=== PATIENT | male | born 1950 | race Caucasian/White ===

== ENCOUNTER → 2020-05-26 09:20 | Outpatient (CLI) | payer MEDICARE, OTHER, SELFPAY ==
--- NOTE | 2020-05-26 09:57 | XR_ITS ---
PROCEDURE: XR CHEST PORTABLE CLINICAL HISTORY: COVID OUTPATIENT Shortness of air COMPARISON: No exams were available for comparison FINDINGS: The cardiomediastinal silhouette and pulmonary vascularity are within normal limits. There is some patchy density noted over the left heart border and may be due to an area of atelectasis or infiltrate. Degenerative changes of the shoulders. IMPRESSION: Patchy density over the left heart border may be due to an area of atelectasis or infiltrate. Dictated by: Henrique Rashid MD 05/26/2020 11:34 Henrique Rashid MD in [place] 05/26/2020 11:34
== END ==
PROVIDERS: PCP Family Medicine; Visit Provider Family Medicine
DX: Z20.822 Contact with and (suspected) exposure to COVID-19 (principal); R06.02 Shortness of breath
CPT/HCPCS: 71045; U0003

== ENCOUNTER → 2020-06-11 14:43 | Outpatient (CLI) | payer MEDICARE, OTHER, SELFPAY ==
--- NOTE | 2020-06-11 14:50 | CT_ITS ---
PROCEDURE: CT CHEST WO CON CLINICAL INDICATION: ABN CHEST X-RAY Follow up Cxr on 05-26-20 No symptoms COMPARISON: CR XR CHEST PORTABLE from 05/26/2020 TECHNIQUE: Axial images obtained with sagittal and coronal reformats. All CT scans at the facility use one or more dose reduction, viz: automated exposure control, ma/kV adjustment per patient size (including targeted exams where dose is matched to indication, i.e. head), or iterative reconstruction technique. FINDINGS: HEART AND MEDIASTINAL STRUCTURES: There are extensive coronary artery calcifications. Normal heart size. Minimal pericardial thickening anteriorly. There is a small hiatal hernia. LUNGS AND PLEURAL SPACES: Minimal nodular thickening of the major fissure nonspecific. Small calcified nodule superior segment right lower lobe. Calcified nodule right upper lobe posteriorly. There is some faint ground-glass infiltrate in the left lower lobe medially. Fissural fat is present within the left major fissure inferiorly. Previously noted atelectatic changes in the left perihilar region have improved. BONY STRUCTURES: Degenerative changes are present in the thoracic spine UPPER ABDOMEN: Small hiatal hernia with mild nonspecific thickening of the distal esophagus. There is a 1.5 cm right adrenal myelolipoma. Gallstones are present. The gallbladder wall appears slightly thickened and is incompletely imaged. ADDITIONAL FINDINGS: No other significant abnormalities. IMPRESSION: 1. No suspicious pulmonary nodules evident. 2. Patchy ground-glass infiltrate superior segment left lower lobe. 3. Coronary artery calcifications consistent with coronary artery disease. 4. Small hiatal hernia. 5. Cholelithiasis Dictated by: Henrique Rashid MD 06/12/2020 13:34 Henrique Rashid MD in [facility] 06/12/2020 13:34
== END ==
PROVIDERS: PCP Family Medicine; Visit Provider Family Medicine
DX: R93.89 Abnormal findings on diagnostic imaging of other specified body structures (principal)
CPT/HCPCS: 71250

== ENCOUNTER → 2020-08-03 13:06 | Outpatient (CLI) | payer MEDICARE, OTHER, SELFPAY ==
--- NOTE | 2020-08-03 13:11 | XR_ITS ---
PROCEDURE: XR KNEE RT 4V CLINICAL INDICATION: RT knee pain COMPARISON: No exams were available for comparison FINDINGS: No fracture or dislocation. No lytic or blastic change. There is normal mineralization. There are moderate osteoarthritic changes at the patellofemoral joint and mild osteoarthritis at the medial lateral compartment. Other findings:Generalized vascular calcification. IMPRESSION: Osteoarthritis Dictated by: Henrique Rashid MD 08/03/2020 17:09 Henrique Rashid MD in [facility] 08/03/2020 17:09
== END ==
PROVIDERS: PCP Family Medicine; Visit Provider Orthopaedic Surgery
DX: M25.561 Pain in right knee (principal)
CPT/HCPCS: 73564

== ENCOUNTER → 2021-01-05 08:31 | Outpatient (CLI) | payer MEDICARE, OTHER, SELFPAY ==
--- NOTE | 2021-01-05 08:40 | XR_ITS ---
PROCEDURE: XR KNEE LT 4V CLINICAL INDICATION: left knee pain COMPARISON: CR XR KNEE RT 4V from 08/03/2020 FINDINGS: No fracture or dislocation. No lytic or blastic change. There is normal mineralization. There are minimal osteoarthritic changes of the medial compartment and patellofemoral joint. Other findings:Generalized vascular calcification. IMPRESSION: Minimal osteoarthritis Dictated by: Henrique Rashid MD 01/05/2021 09:32 Henrique Rashid MD in [facility] 01/05/2021 09:32
--- NOTE | 2021-01-05 08:40 | XR_ITS ---
PROCEDURE: XR HIP LT 2-3V W/PELVIS CLINICAL INDICATION: left hip pain COMPARISON: No exams were available for comparison FINDINGS: There are minimal osteoarthritic changes of the left hip. No fracture or dislocation. No lytic or blastic change. There is mild vascular calcification. AP view of the pelvis also shows minimal osteoarthritic change of the right hip. IMPRESSION: Minimal osteoarthritic changes Dictated by: Henrique Rsahid MD 01/05/2021 09:32 Henrique Rashid MD in [facility] 01/05/2021 09:32
== END ==
PROVIDERS: PCP Family Medicine; Visit Provider Orthopaedic Surgery
DX: M25.562 Pain in left knee (principal); M25.552 Pain in left hip
CPT/HCPCS: 73502; 73564

== ENCOUNTER → 2021-05-12 09:24 | Outpatient (CLI) | payer MEDICARE, OTHER, SELFPAY ==
--- NOTE | 2021-05-12 09:33 | XR_ITS ---
FINAL REPORT CLINICAL HISTORY: left knee pain; weightbearing FINDINGS: LEFT KNEE Four views demonstrate no acute fracture or dislocation. There is mild narrowing of the medial compartment joint space. Small osteophytes are seen along the superior margin of the patella. No joint effusion is identified. IMPRESSION: Changes of osteoarthritis. Reviewed, Interpreted and Dictated by David Jorge MD Transcribed by Rossi Dc Authenticated by David Jorge MD on 05/12/2021 11:33:34 AM [facility]
--- NOTE | 2021-05-12 09:33 | XR_ITS ---
FINAL REPORT CLINICAL HISTORY: right knee pain FILMS DONE WEIGHTBEARING FINDINGS: RIGHT KNEE Four views demonstrate no acute fracture or dislocation. There is mild narrowing of the medial compartment joint space. There is moderate patellofemoral joint space narrowing. Small osteophytes are seen along the superior margin of the patella. There is no joint effusion. IMPRESSION: Changes of osteoarthritis as above. Reviewed, Interpreted and Dictated by David Jorge MD Transcribed by Rossi Dc Authenticated by David Jorge MD on 05/12/2021 11:33:23 AM [facility]
== END ==
PROVIDERS: PCP Family Medicine; Visit Provider Orthopaedic Surgery
DX: M17.0 Bilateral primary osteoarthritis of knee (principal)
CPT/HCPCS: 73564

== ENCOUNTER → 2021-10-20 09:38 | Outpatient (CLI) | payer MEDICARE, OTHER, SELFPAY ==
--- NOTE | 2021-10-20 09:52 | XR_ITS ---
FINAL REPORT CLINICAL HISTORY: PAIN DUE TO A FALL FINDINGS: SACRUM/COCCYX Two views were obtained. There is no acute fracture or dislocation. There is moderate degenerative change in the lower lumbar spine. There is no soft tissue abnormality. IMPRESSION: No acute bony abnormality. Reviewed, Interpreted and Dictated by Kei Fritz III, MD Transcribed by Itzel Dawson Authenticated and [facility]
== END ==
PROVIDERS: PCP Family Medicine; Visit Provider Family Medicine
DX: M53.3 Sacrococcygeal disorders, not elsewhere classified (principal); W19.XXXA Unspecified fall, initial encounter
CPT/HCPCS: 72220

== ENCOUNTER → 2022-08-17 14:00 | Outpatient (CLI) | payer MEDICARE, OTHER, SELFPAY ==
--- NOTE | 2022-08-17 14:05 | XR_ITS ---
FINAL REPORT CLINICAL HISTORY: left knee pain COMPARISON: 05/12/2021 FINDINGS: Left knee Four views were obtained. There is no acute fracture or dislocation. There is sharpening of the tibial spines. There is mild to moderate narrowing of the lateral articular facet of the patellofemoral joint. No soft tissue abnormality is identified. IMPRESSION: Degenerative changes as above. Reviewed, Interpreted and Dictated by David Jorge MD Transcribed by Rossi Dc Authenticated and [facility]
--- NOTE | 2022-08-17 14:05 | XR_ITS ---
FINAL REPORT CLINICAL HISTORY: right knee pain COMPARISON: 05/12/2021 FINDINGS: Right knee Four views were obtained. There is no acute fracture or dislocation. There is mild narrowing of the medial compartment joint space. There are small osteophytes along the undersurface of the patella. No soft tissue abnormality is identified. IMPRESSION: Mild osteoarthritis. Reviewed, Interpreted and Dictated by David Jorge MD Transcribed by Rossi Dc Authenticated and [facility]
== END ==
PROVIDERS: PCP Family Medicine; Visit Provider Orthopaedic Surgery
DX: M25.562 Pain in left knee (principal); M25.561 Pain in right knee
CPT/HCPCS: 73562

== ENCOUNTER → 2022-10-05 16:22 | Outpatient (CLI) | payer MEDICARE, OTHER, SELFPAY | PROVIDERS: PCP Nurse Practitioner Family; Visit Provider Nurse Practitioner Family | DX: M79.674 Pain in right toe(s) (principal) | CPT/HCPCS: 87102; 87206; 87220 ==

== ENCOUNTER 2023-12-13 09:08 | Outpatient (CLI) | payer MEDICARE, SELFPAY ==
--- NOTE | 2023-12-13 09:13 | XR_ITS ---
FINAL REPORT CLINICAL HISTORY: knee pain COMPARISON: 08/18/2023 FINDINGS: LEFT KNEE 3 views of the left knee were obtained. There is no acute fracture or dislocation. There is mild narrowing of the medial compartment joint space. There is moderate narrowing at the medial articular facet of the patellofemoral joint. Soft tissues are unremarkable. IMPRESSION: Degenerative changes without acute bony abnormality. Reviewed, Interpreted and Dictated by David Jorge MD Transcribed by Snehal Marsh Authenticated and [facility]
--- NOTE | 2023-12-13 09:13 | XR_ITS ---
FINAL REPORT CLINICAL HISTORY: Knee Pain COMPARISON: 08/18/2023 FINDINGS: RIGHT KNEE 3 views of the right knee were obtained. There is no acute fracture or dislocation. There is mild narrowing of the medial compartment joint space. There is moderate narrowing at the medial articular facet of the patellofemoral joint. These findings are similar to the prior study. Soft tissues are unremarkable. IMPRESSION: Degenerative changes without acute bony abnormality. Reviewed, Interpreted and Dictated by David Jorge MD Transcribed by Snehal Marsh Authenticated and [facility]
== END 2023-12-13 23:59 | disposition home or self-care (01) ==
LOC: RAD 09:10
PROVIDERS: PCP Family Medicine; Visit Provider Physician Assistant
DX: M25.561 Pain in right knee (principal); M25.562 Pain in left knee; G89.29 Other chronic pain
CPT/HCPCS: 73562

== ENCOUNTER 2024-09-26 08:19 | Outpatient (CLI) | payer MEDICARE, OTHER, SELFPAY ==
--- NOTE | 2024-09-26 08:27 | XR_ITS ---
FINAL REPORT CLINICAL HISTORY: pain after falling off porch a few months ago, pt can lift & move shoulder without consistent pain COMPARISON: None FINDINGS: LEFT SHOULDER 3 views of the left shoulder were obtained. There is no acute fracture or dislocation. Mild to moderate hypertrophic changes are present in both the acromioclavicular and glenohumeral joints. There is a small osseous density just superior to the acromioclavicular joint. Soft tissues are unremarkable. IMPRESSION: No acute bony abnormality. Mild to moderate hypertrophic changes in both the acromioclavicular and glenohumeral joints. Reviewed, Interpreted and Dictated by David Jorge MD Transcribed by Mila Rowe Authenticated and [facility] [place]
== END 2024-09-26 23:59 | disposition home or self-care (01) ==
LOC: RAD 08:23
PROVIDERS: PCP Nurse Practitioner; Visit Provider Nurse Practitioner
DX: M19.012 Primary osteoarthritis, left shoulder (principal); Z91.81 History of falling
CPT/HCPCS: 73030

== ENCOUNTER 2024-10-14 08:46 | Outpatient (RCR) | payer MEDICARE, OTHER, SELFPAY | END 2024-10-14 23:59 | disposition home or self-care (01) | LOC: OT 08:46 | PROVIDERS: PCP Family Medicine; Visit Provider Nurse Practitioner | DX: M25.519 Pain in unspecified shoulder (principal) | CPT/HCPCS: 97014; 97165; G0283 ==

== ENCOUNTER 2024-11-14 08:00 | Outpatient (RCR) | payer MEDICARE, OTHER, SELFPAY | END 2024-11-14 23:59 | disposition home or self-care (01) | LOC: OT 08:00 | PROVIDERS: PCP Family Medicine; Visit Provider Nurse Practitioner | DX: M25.519 Pain in unspecified shoulder (principal) | CPT/HCPCS: 97010; 97014; 97032; 97035; 97110; 97140; 97168; 97530; G0283 ==

== ENCOUNTER 2024-11-22 15:25 | Outpatient (CLI) | payer MEDICARE, OTHER, SELFPAY ==
--- OUTSIDE RECORDS SUMMARY | 2024-11-22 15:27 | XMS_ITS ---
Author Organization Unknown Results OrderDate OrderTestName ResultName ResultDate Value Units Range AbnormalFlag ResultStatus ObservationNotes TestCode ResultCode DateRecorded AccessionNumber DiagnosticSectionCode DiagnosticSectionName Sequence Interpretation Cust om 12/20/2023 00:00:00 Glycohemoglobin (GHb),Total Glycohemoglobin (GHb),Total [id number]:00:00 6.4% Reviewed Margarita Granado 12/20/2023 08:31:12 AM > Glycohemoglobin (GHb),Total Coding Glycohemoglobin (GHb),Total 12/20/2023 00:00:00105/21/2023 00:00:00Glucose MqhbossXugoryn2373-78-80D32:00:00 94mg/dl73 - 118 mg/dlReMargarita Forde 03/20/2024 08:47:00 AM EST >ROBERTO CARLOS CONTRERAS 03/29/2024 03:19:00 PM EST > Coding Glucose Fasting 03/20/2024 00:00:00105/21/2023 00:00:00Glycohemoglobin (GHb),TotalGlycohemoglobin (GHb),Hhzwa6211-93-55O26:00:006.1RevMargarita Fu 03/20/2024 08:47:13 AM EST >ROBERTO CARLOS CONTRERAS 03/29/2024 03:18:53 PM EST > Coding Glycohemoglobin (GHb),Total Coding Glycohemoglobin (GHb),Total 03/20/2024 00:00: 00:00:00MicroalbuminA:[id number]:00:00<30 Margarita Bentley 05/28/2024 08:21:25 AM EST > Coding Microalbumin 05/28/2024 00:00: 00:00:69IndvjcocmldjTNV9258-48-30N10:00:80577 Margarita Bentley 05/28/2024 08:21:25 AM EST > Coding Microalbumin 05/28/2024 00:00: 00:00:78QtemyigpyjdjKQP2816-67-58W57:00:0010 Margarita Bentley 05/28/2024 08:21:25 AM EST > Coding Microalbumin Coding ALB 05/28/2024 00:00: 00:00:44CoxudiwgaafkUlvtd6409-46-02R74:00:00YELLOW Margarita Bentley 05/28/2024 08:21:25 AM EST > Coding Microalbumin 05/28/2024 00:00: 00:00:61MfwqoyjuodloGutzcfz2331-55-87H19:00:00 CLEARReMargarita Forde 05/28/2024 08:21:25 AM EST > Coding Microalbumin 05/28/2024 00:00: 00:00:00Glucose ZvyzqtpLjginzr8278-64-22F00:00:00 55mg/dl73 - 118 mg/dlMargarita Bentley 05/28/2024 08:16:05 AM EST > Coding Glucose Fasting 05/28/2024 00:00: 00:00:00MicroalbuminA:M0752-83-50I49:00:00<30 Margarita Bentley 06/11/2024 08:42:04 AM EST > Coding Microalbumin 06/11/2024 00:00: 00:00:45MsovsudwnfimZUS0623-84-41S19:00:65600 Margarita Bentley 06/11/2024 08:42:04 AM EST > Coding Microalbumin 06/11/2024 00:00: 00:00:79RsurvmbuyadxXTJ3620-98-15F72:00:0030 Margarita Bentley 06/11/2024 08:42:04 AM EST > Coding Microalbumin Coding ALB 06/11/2024 00:00: 00:00:66TzfvqyviceumSzksq0863-04-84L95:00:00yellow Margarita Bentley 06/11/2024 08:42:04 AM EST > Coding Microalbumin 06/11/2024 00:00: 00:00:23NhccdfsaoczyZuwilyu7896-99-18I74:00:00 clearReMargarita Forde 06/11/2024 08:42:04 AM EST > Coding Microalbumin 06/11/2024 00:00: 00:00:00Glycohemoglobin (GHb),TotalGlycohemoglobin (GHb),Rydsh7021-50-61E04:00:006.Margarita Allen 06/11/2024 08:41:39 AM EST > Coding Glycohemoglobin (GHb),Total Coding Glycohemoglobin (GHb),Total 06/11/2024 00:00:00
== END 2024-11-22 23:59 | disposition home or self-care (01) ==
LOC: RAD 15:25
PROVIDERS: PCP Family Medicine; Visit Provider Nurse Practitioner
DX: R69 Illness, unspecified (principal)

== ENCOUNTER 2024-12-23 08:20 | Outpatient (CLI) | payer MEDICARE, OTHER, SELFPAY ==
--- NOTE | 2024-12-23 08:23 | XR_ITS ---
FINAL REPORT CLINICAL HISTORY: right knee pain COMPARISON: 08/17/2022 FINDINGS: Three views of the right knee were obtained. There is no acute fracture or dislocation. There is degenerative joint disease, most pronounced at the patellofemoral articulation. There is no joint effusion. Vascular calcifications are noted. IMPRESSION: Degenerative joint disease without acute osseous abnormality. Reviewed, Interpreted and Dictated by Ida Caldwell MD Transcribed by Nelly Velazquez Authenticated and [facility]
--- NOTE | 2024-12-23 08:23 | XR_ITS ---
FINAL REPORT CLINICAL HISTORY: left knee pain COMPARISON: 08/17/2022 FINDINGS: Three views of the left knee were obtained. There is no acute fracture or dislocation. There is degenerative joint disease, most pronounced at the patellofemoral compartment. This appears similar to the prior exam. There is a small joint effusion. Vascular calcifications are noted. IMPRESSION: Degenerative joint disease without acute osseous abnormality. Small joint effusion. Reviewed, Interpreted and Dictated by Ida Caldwell MD Transcribed by Nelly Velazquez Authenticated and [facility]
== END 2024-12-23 23:59 | disposition home or self-care (01) ==
LOC: RAD 08:21
PROVIDERS: PCP Nurse Practitioner; Visit Provider Physician Assistant
DX: M17.11 Unilateral primary osteoarthritis, right knee (principal); M17.12 Unilateral primary osteoarthritis, left knee
CPT/HCPCS: 73562

== ENCOUNTER 2025-04-08 08:36 | Outpatient (CLI) | payer MEDICARE, OTHER, SELFPAY ==
--- OUTSIDE RECORDS SUMMARY | 2025-04-08 08:40 | XMS_ITS | Clinical Summary ---
Author Organization Healthcare Address [address] [place] [address] Care Team Providers Care Record Clerk Salesperson Name Role Phone Latasha Wakefield ROHIT Primary Care Provider [phone] Encounters Date Type Department Care Team Description 04/01/2025 Telephone [facility] [address], [address] [place] [address] José Luis Rose MD 01/22/2025 Orders Only [facility] [address] [place] [address] Lisa Ho Stage 3 chronic kidney disease, unspecified whether stage 3a or 3b CKD (CMS/HCC) (Primary Dx); Vitamin D insufficiency from Last 3 Months Social History Tobacco Use Types Packs/Day Years Used Date Smoking Tobacco: Never Assessed Sex and Gender Information Value Date Recorded Sex Assigned at Not on file Legal Sex Male 12:31 PM EDT Gender Identity Not on file Sexual Orientation Not on file Plan of Treatment Upcoming Encounters Date Type Department Care Team (Late st Contact Info) Description 04/18/2025 10:00 AM EST Office Visit [facility] [address] [place] [address] José Luis Rose MD [address] [place] [address] Health Maintenance Due Date Last Done Comments [facility]-Depression Screening 1950 [facility]-Hepatitis C Screening 1950 [facility]-Medicare Annual Wellness (AWV) 1950 [facility]-/Child/Adol SDOH Screenings 1950 [facility]- SDOH Screenings 01/10/1966 [facility]-Adult SDOH Screenings 01/10/1966 [facility]-Zoster Vaccines (1 of 2) 01/10/1998 [facility]-RSV Vaccine: 60+ Years or (1 - 1-dose 75+ series) 01/10/2023 [id number] Vaccine (8 - season) 2024 01/24/2024, 01/31/2023, 01/05/2022, Additional history exists [facility]-Influenza Vaccine (#1) 12/16/202401/20, 12/28/2016, 12/22/2015, Additional history exists [facility]-DTaP,Tdap,and Td Vaccines (2 - Td or Tdap) 01/23/2034 01/24/2024 [facility]-Pneumococcal Vaccine: 50+ Years Completed 12/20/2023, 03/23/2016, 03/10/2015 HPV Vaccines (No Doses Required) Completed [facility]-HIB Vaccines Aged Out No longer e ligible based on patient's age to complete this topic [facility]-Hepatitis A Vaccines Aged Out No longer eligible based on patient's age to complete this topic [facility]-IPV Vaccines Aged Out No longer e ligible based on patient's age to complete this topic [facility]-Rotavirus Vaccines Aged Out No lo nger eligible based on patient's age to complete this topic [place] [address] [facility] MEDICAID Care Teams Record Clerk Salesperson Relationship Specialty Start Date End Date Latasha Wakefield APRN [address] [place] [address] PCP - General 01/03/25
--- OUTSIDE RECORDS SUMMARY | 2025-04-08 08:40 | XMS_ITS | Encounter Summary ---
Author Organization Healthcare Address [address] [place] [address] Care Team Providers Care Manager Call Name Role Phone Latasha Wakefield WELL CONTR[employer] INSTRUCTOR Primary Care Provider [phone] Encounter Details Date Type Department Care Team ([facility] st Contact Info) Description 04/01/2025 Telephone [facility] [address], [address] [place] [address] José Luis Rose MD [address] [place] [address] Social History Tobacco Use Types Packs/Day Years Used Date Smoking Tobacco: Never Assessed Sex and Gender Information Value Date Recorded Sex Assigned at Not on file Legal Sex Male 12:31 PM EDT Gender Identity Not on file Sexual Orientation Not on file documented as of this encounter Miscellaneous Notes * Telephone Encounter - Vale Lal - 04/01/2025 8:26 AM EST Clinical Concern/Question Reason for Call: Patient is seen in the [facility] office but needs a lab order faxed to [facility] [phone] prior to his 04/18/25 appointment Best contact number: Other: [phone] Optimal time of day to reach caller: ANYTIME Additional comments/information from caller: None Note: Please do not reply to this message. Follow-up communication and further actions as a result of this message need to be communicated with the patient directly, if the patient is not active onMyChart. If the patient is active on MyChart, they will receive notification of the communication/outcome via MyChart. documented in this encounter Plan of Treatment Upcoming Encounters Date Type Department Care Team (Late st Contact Info) Description 04/18/2025 10:00 AM EST Office Visit [facility] [address] [place] [address] José Luis Rose MD [address] [place] [address] documented as of this encounter Visit Diagnoses Not on filedocumented in this encounter Care Teams Manager Call Relationship Specialty Start Date End Date Latasha Wakefield APRN [facility] [place], [place] [id number] PCP - General 01/03/25 documented as of this encounter
[2025-04-08 08:45] LABS: Microscopic, Urine URINE MICROSCOPIC (MICROSCOPIC)
[2025-04-08 09:23] LABS: Hematocrit 51.3 % (42.0-52.0); Hemoglobin 15.8 g/dL (14.1-18.0); Immature Granulocytes % 0.4 %; Mean Corpuscular HGB Conc 30.8 g/dL (31.8-35.4); Mean Corpuscular Hemoglobin 29.6 pg (27.0-31.2); Mean Corpuscular Volume 96.1 fl (80-94); Nucleated Red Blood Cells % 0 %; Platelet Count 303 K/mm3 (142-424); Red Blood Count 5.34 M/mm3 (4.60-6.20); Red Cell Distribution Width-SD 48.9 fL; White Blood Count 8.5 K/mm3 (4.8-10.8)
[2025-04-08 09:41] LABS: Bilirubin,Urine Negative (Negative); Color,Urine YELLOW (Yellow); Glucose,Urine (UA) Negative (Negative); Ketones,Urine Negative (Negative); Leukocyte Esterase,Urine Negative (Negative); PH,Urine 6.0 (5.0-8.5); Protein,Urine Negative (Negative); Specific Gravity, Urine 1.020 (1.005-1.030); Urobilinogen,Urine 1.0 EU/dl (0.2)
[2025-04-08 10:13] LABS: Bacteria,Urine Trace /lpf; Squamous Epithelial Cell,Urine Occasional #/hpf (0-5); WBC,Urine Occasional #/hpf (0-3)
[2025-04-08 10:23] LABS: Albumin Level 4.3 g/dl (3.5-5.0); Anion Gap 10.2 mEq/L (5-15); Blood Urea Nitrogen 30 mg/dl (9-20); Calcium 9.3 mg/dl (8.4-10.2); Carbon Dioxide 31 mmol/L (22.0-30.0); Chloride 99 mmol/L (98-107); Creatinine,Serum 1.50 mg/dl (0.66-1.25); Estimated Glomerular Filt Rate 45 ml/min (>60); GFR (African American) 55 ML/MIN (>60); Glucose 118 mg/dl (74-100); Phosphorous 3.2 mg/dl (2.5-4.5); Potassium 5.2 mmoL/L (3.5-5.1); Sodium 135 mmol/L (136-145)
[2025-04-08 10:40] LABS: 25-OH Vitamin D, Total 46.0 ng/mL (30-100)
== END 2025-04-08 23:59 | disposition home or self-care (01) ==
LOC: LAB 08:37
PROVIDERS: PCP Nurse Practitioner; Visit Provider Student in an Organized Health Care Education/Training Program
DX: N18.30 Chronic kidney disease, stage 3 unspecified (principal); E55.9 Vitamin D deficiency, unspecified
CPT/HCPCS: 36415; 80069; 81001; 82306; 82570; 83970; 84156; 85025